=== PATIENT | female | born 1955 | race Caucasian/White ===

== ENCOUNTER → 2017-02-09 | Outpatient (CLI) | payer OTHER | LOC: RAD 04:17 | DX: Z12.31 Encounter for screening mammogram for malignant neoplasm of breast (principal) ==

== ENCOUNTER → 2018-01-27 | Outpatient (CLI) | payer OTHER | LOC: RAD 02:48 | DX: Z12.31 Encounter for screening mammogram for malignant neoplasm of breast (principal) ==

== ENCOUNTER → 2019-01-29 | Outpatient (CLI) | payer OTHER | LOC: RAD 01:48 | DX: Z12.31 Encounter for screening mammogram for malignant neoplasm of breast (principal) ==

== ENCOUNTER → 2020-01-29 | Outpatient (CLI) | payer OTHER | LOC: BC 13:36 | PROVIDERS: ATTEND Internal Medicine | DX: Z12.31 Encounter for screening mammogram for malignant neoplasm of breast (principal) ==

== ENCOUNTER → 2021-01-30 | Outpatient (CLI) | payer OTHER | LOC: BC 15:24 | PROVIDERS: ATTEND Internal Medicine | DX: Z12.31 Encounter for screening mammogram for malignant neoplasm of breast (principal); N64.89 Other specified disorders of breast ==